=== PATIENT | female | born 1990 | race Caucasian/White ===

== ENCOUNTER 2019-09-03 08:50 | Inpatient (IN) | payer OTHER ==
[2019-09-03 10:48] LABS: BASO % 0.4 % (0-2.0); EOS % 0.6 % (0-4.5); HEMATOCRIT 32.9 % (32.4-45.2); HEMOGLOBIN 10.8 GM/dL (10.7-15.3); LYMPH % 24.2 % (8-40); MCH 25.9 pg (25.7-33.7); MCHC 32.9 g/dl (32.0-36.0); MEAN CELL VOLUME 78.7 fl (80-96); MONO % 5.4 % (3.8-10.2); NEUT % 69.4 % (42.8-82.8); PLATELET COUNT 294 K/MM3 (134-434); RBC 4.18 M/mm3 (3.60-5.2); RDW 15.8 % (11.6-15.6)
[2019-09-03 10:49] VITALS: BMI 30.1
--- NOTE | 2019-09-03 10:59 | HP ---
Past Medical History - Admission Chief Complaint: Labor pain History of Present Illness: 28 yo @ 38.4 weeks gestation, EDC 09/13/19, with previous , admitted for . She denies any rupture of membrane nor vaginal bleeding. Upon admission she was 4cm dilated. History Source: Patient Limitations to Obtaining History: No Limitations - Past Medical History ...: 3 ...Para: 2 ...Term: 2 ...: 0 ...Spon : 0 ...Induced : 0 ...Multiple Gestation: 0 ...EDC by [facility]: 09/13/19 - Past Surgical History Past Surgical History: Yes: Hx Myomectomy: No Hx Transabdominal Cerclage: No - Smoking History Smoking history: Never smoked Have you smoked in the past 12 months: No - Alcohol/Substance Use Hx Alcohol Use: No - Social History Usual Living Arrangement: Yes: With Significant Other History of Recent Travel: No Home Medications - Allergies Allergies/Adverse Reactions: Allergies Allergy/AdvReac Type Severity Reaction Status Date / Time No Known Allergies Allergy Verified 09/03/19 09:23 - Home Medications Home Medications: Ambulatory Orders Vitamins ([facility]) - 1 tab PO DAILY 09/03/19 Family Medical History Family History: Unremarkable Review of Systems - Review of Systems Constitutional: reports: No Symptoms Eyes: reports: No Symptoms HENT: reports: No Symptoms Neck: reports: No Symptoms Cardiovascular: reports: No Symptoms Respiratory: reports: No Symptoms Gastrointestinal: reports: No Symptoms Genitourinary: reports: Pain Breasts: reports: No Symptoms Reported Musculoskeletal: reports: No Symptoms Integumentary: reports: No Symptoms Neurological: reports: No Symptoms Endocrine: reports: No Symptoms Hematology/Lymphatic: reports: No Symptoms Psychiatric: reports: No Symptoms Pain Intensity: 7 Physical Exam - Maternity Vital Signs: Vital Signs Temperature 98.8 F 09/03/19 09:53 Pulse Rate 67 09/03/19 09:53 Respiratory Rate 20 09/03/19 09:53 Blood Pressure 126/63 09/03/19 09:53 O2 Sat by Pulse Oximetry (%) Constitutional: Yes: Well Nourished Eyes: Yes: Conjunctiva Clear HENT: Yes: Atraumatic Neck: Yes: Supple Cardiovascular: Yes: Regular Rate and Rhythm Lungs: Clear to auscultation - Abdominal Exam/OB Number of Fetuses: Single Presentation: Vertex Contractions: Yes - Vaginal Exam/OB Vaginal Bleediing: No Dilatation (cm): 4 Effacement (%): 80 Amniotic Membrane Status: Intact Presentation: Vertex/Position Station: -2 - Physical Exam Musculoskeletal: Yes: WNL Extremities: Yes: WNL ...Motor Strength: WNL Psychiatric: Yes: Alert, Oriented - Labs Lab Results: CBC, BMP 09/03/19 10:10 Problem List - Problems (1) 38 weeks gestation of Code(s): Z3A.38 - 38 WEEKS GESTATION OF Assessment/Plan 38 weeks gestation Previous Admit for Consent signed Anesthesia to see patient Anticipate
[2019-09-03] MEDS ORDERED: DEXTROSE 5%-LACTATED RINGERS 1,000 ML IV SCH ×2 (11:00)
[2019-09-03 11:01] LABS: INR 0.92 (0.83-1.09); PROTHROMBIN TIME (PATIENT) 10.8 SEC (9.7-13.0)
[2019-09-03 11:04] LABS: ACTIVATED PTT 26.7 SECONDS (25.2-36.5)
[2019-09-03 11:04] LABS: BLOOD UREA NITROGEN 6.8 mg/dL (7-18); CALCIUM 8.2 mg/dL (8.5-10.1); CREATININE 0.5 mg/dL (0.55-1.3); POTASSIUM 4.1 mmol/L (3.5-5.1)
[2019-09-03] MEDS ORDERED: FENTANYL/BUPIVACAINE/NS/PF - PCEA - 50 ML DISP.SYRIN EP ONE (12:57)
[2019-09-03] MEDS ORDERED: NALOXONE HCL 0.4 MG/ML VIAL IVPUSH PRN (13:02)
[2019-09-03] MEDS ORDERED: LIDO 2%/EPI 1:200000 PRESRVFRE (20 ML SDVIAL) ONE (13:04)
[2019-09-03] MEDS ORDERED: BUPIVACAINE HCL/PF 2.5 MG/ML - 30 ML VIAL IJ ONE (13:04)
[2019-09-03] MEDS ORDERED: FENTANYL/BUPIVACAINE/NS/PF - PCEA - 50 ML DISP.SYRIN EP SCH (13:15)
[2019-09-03] MEDS ORDERED: OXYTOCIN 20 UNITS in 0.9% NS 20 UNIT/1,000 ML INFUS.BAG IV ONE (13:42)
[2019-09-03] MEDS ORDERED: OXYTOCIN 30 UNITS in 0.9% NS 30 UNIT/500 ML INFUS.BAG IVPB ONE (15:11)
[2019-09-03] MEDS ORDERED: ACETAMINOPHEN 325 MG TABLET (FP) PO PRN (15:54)
[2019-09-03] MEDS ORDERED: BENZOCAINE 20% 57 GM BOTTLE TP PRN (15:54)
[2019-09-03] MEDS ORDERED: BENZOCAINE 28 GM HEMORRHOIDAL OINTMENT TP PRN (15:54)
[2019-09-03] MEDS ORDERED: BISACODYL 10 MG SUPP.RECT RC PRN (15:54)
[2019-09-03] MEDS ORDERED: IBUPROFEN 600 MG TABLET (FP) PO PRN (15:54)
[2019-09-03] MEDS ORDERED: WITCH HAZEL 50% (TUCKS) 40 PAD/JAR PAD TP PRN (15:54)
[2019-09-03] MEDS ORDERED: METHYLERGONOVINE MALEATE 0.2 MG/1 ML AMP IM PRN (15:54)
--- NOTE | 2019-09-03 15:58 | PN ---
Delivery - Delivery Vaginal Delivery: V-Tammy Type of Anesthesia: Spinal Episiotomy/Laceration: None EBL (cc): 250 Delivery, Single - Feeding Plan Initial Plan: Exclusive throughout hospitalization Remarks - Remarks Remarks: Vaginal after of a live infant girl over intact perineum. Nose / Oropharynx suctioned @ perineum. Tight nuchal cord x 1 clamped and cut. Baby handed to nurse. Placenta expelled spontaneously intact. Mother in stable condition.
[2019-09-03] MEDS ORDERED: OXYTOCIN 20 UNITS in 0.9% NS 20 UNIT/1,000 ML INFUS.BAG IV SCH (16:00)
[2019-09-03] MEDS ORDERED: ELECTROLYTE-148 SOLN 1,000 ML IV SCH (16:00)
[2019-09-03] MEDS: FERROUS SO4 325 MG TABLET (FP) PO SCH (21:08)
[2019-09-04] MEDS: FERROUS SO4 325 MG TABLET (FP) PO SCH ×2 (10:18→21:32)
[2019-09-04] MEDS: PRENATAL VITAMINS W/ FOLIC ACID TABLET (FP) PO SCH (10:18)
[2019-09-04 10:26] LABS: BASO % 0.2 % (0-2.0); EOS % 0.5 % (0-4.5); HEMOGLOBIN 10.3 GM/dL (10.7-15.3); MCH 26.2 pg (25.7-33.7); MCHC 33.3 g/dl (32.0-36.0); MEAN CELL VOLUME 78.6 fl (80-96); MEAN PLT VOLUME 8.7 fl (7.5-11.1); NEUT % 84.3 % (42.8-82.8); PLATELET COUNT 285 K/MM3 (134-434); RBC 3.94 M/mm3 (3.60-5.2); RDW 16.1 % (11.6-15.6); WHITE BLOOD COUNT 9.9 K/mm3 (4.0-10.0)
--- NOTE | 2019-09-04 10:36 | PN ---
Post Progress Note - Subjective Subjective: 28 yo Para 3 status post vaginal delivery, seen and evaluated. Doing well Post Day: 1 Type of Delivery: Vital Signs: Vital Signs Temperature 97.8 F 09/04/19 08:52 Pulse Rate 78 09/04/19 08:52 Respiratory Rate 20 09/04/19 02:00 Blood Pressure 114/58 L 09/04/19 08:52 O2 Sat by Pulse Oximetry (%) 100 09/03/19 17:00 Breast Exam: Yes: Soft Uterus: Yes: Fundus Firm Abdomen/GI: Yes: Abdomen soft, Tolerating PO Lochia: Yes: Rubra Lochia, amount: Moderate Extremities: Yes: Calves non-tender Perineum: Yes: Intact Activity: Ambulating - Labs Labs: CBC WBC 9.9 K/mm3 (4.0-10.0) 09/04/19 09:50 RBC 3.94 M/mm3 (3.60-5.2) 09/04/19 09:50 Hgb 10.3 GM/dL (10.7-15.3) L 09/04/19 09:50 Hct 31.0 % (32.4-45.2) L 09/04/19 09:50 MCV 78.6 fl (80-96) L 09/04/19 09:50 MCH 26.2 pg (25.7-33.7) 09/04/19 09:50 MCHC 33.3 g/dl (32.0-36.0) 09/04/19 09:50 RDW 16.1 % (11.6-15.6) H 09/04/19 09:50 Plt Count 285 K/MM3 (134-434) 09/04/19 09:50 MPV 8.7 fl (7.5-11.1) 09/04/19 09:50 Absolute Neuts (auto) 8.3 K/mm3 (1.5-8.0) H 09/04/19 09:50 Neutrophils % 84.3 % (42.8-82.8) H D 09/04/19 09:50 Lymphocytes % 12.0 % (8-40) D 09/04/19 09:50 Monocytes % 3.0 % (3.8-10.2) L 09/04/19 09:50 Eosinophils % 0.5 % (0-4.5) 09/04/19 09:50 Basophils % 0.2 % (0-2.0) 09/04/19 09:50 Nucleated RBC % 0 % (0-0) 09/04/19 09:50 Problem List - Problems (1) 38 weeks gestation of Problems reviewed: Yes Code(s): Z3A.38 - 38 WEEKS GESTATION OF (2) Status post normal vaginal delivery Problems reviewed: Yes Code(s): PDD5861 - Assessment/Plan Status post normal vaginal delivery Stable Continue routine care
[2019-09-04] MEDS ORDERED: SENNOSIDES/DOCUSATE COMBO (SENNA PLUS) TABLET (UD) PO PRN (22:00)
--- NOTE | 2019-09-05 07:03 | PN ---
Post Note - Post Date of Delivery: 09/03/19 Post Day: 1 Vital Signs: Vital Signs - 24 hr 09/04/19 09/04/19 09/04/19 08:52 12:00 15:00 Temperature 97.8 F 98.5 F 98.5 F Pulse Rate 78 83 83 Respiratory 20 20 Rate Blood Pressure 114/58 L 103/65 103/65 09/04/19 21:34 Temperature 98.4 F Pulse Rate 70 Respiratory 18 Rate Blood Pressure 110/66 Labs: Laboratory Results - last 24 hr 09/04/19 09:50 WBC 9.9 RBC 3.94 Hgb 10.3 L Hct 31.0 L MCV 78.6 L MCH 26.2 MCHC 33.3 RDW 16.1 H Plt Count 285 MPV 8.7 Absolute Neuts (auto) 8.3 H Neutrophils % 84.3 H D Lymphocytes % 12.0 D Monocytes % 3.0 L Eosinophils % 0.5 Basophils % 0.2 Nucleated RBC % 0 - Subjective Subjective: No Complaints - Objective Afebrile: Yes Breast: Not engorged Abdomen: Soft, Non-tender Uterus: Fundus firm Vagina: Scant lochia Extremities: Non-tender - Assessment/Plan (1) Status post normal vaginal delivery Assessment: S/P Normal Plan: Routine Care
[2019-09-05] MEDS: PRENATAL VITAMINS W/ FOLIC ACID TABLET (FP) PO SCH (11:01)
[2019-09-05] MEDS: FERROUS SO4 325 MG TABLET (FP) PO SCH (11:01)
[2019-09-05 15:28] VITALS: BP 116/71; PULSE 71; TEMP 98.2
== END 2019-09-05 11:20 | disposition home or self-care (01) | DRG 560 ==
LOC: JDEL 08:50 → JLDR 09:35 → J3W 18:22
PROVIDERS: ADMIT Obstetrics & Gynecology; ATTEND Obstetrics & Gynecology
PROC: 10E0XZZ Delivery of Products of Conception, External Approach (ICD-10-PCS; principal; 2019-09-03)
DX: O69.1XX0 Labor and delivery complicated by cord around neck, with compression, not applicable or unspecified (principal); O34.219 Maternal care for unspecified type scar from previous cesarean delivery; Z3A.38 38 weeks gestation of pregnancy; Z37.0 Single live birth
CPT/HCPCS: 36415; 59025; 59409; 80048; 85025; 85610; 85730; 86593; 86850; 86900; 86901

== ENCOUNTER 2025-02-24 01:57 | Emergency (ER) | payer OTHER ==
[2025-02-24 02:09] VITALS: TEMP 97.8; BMI 23.3
[2025-02-24] MEDS ORDERED: MAG HYDROX/AL HYDROX/SIMETH 30 ML UNIT-DOSE CUP ONE (02:20)
[2025-02-24] MEDS ORDERED: ACETAMINOPHEN INJECTION 100 ML ONE (02:20)
[2025-02-24] MEDS ORDERED: FAMOTIDINE 20 MG/50 ML IVPB 20 MG/50 ML MG IVPB ONE (02:20)
[2025-02-24] MEDS: MAG HYDROX/AL HYDROX/SIMETH 30 ML UNIT-DOSE CUP PO ONE (02:31)
[2025-02-24] MEDS: ACETAMINOPHEN 1000 MG/100 ML BAG IVPB ONE (02:31)
[2025-02-24 02:40] LABS: ABSOLUTE IMMATURE GRANULOCYTES 0.01 x10^3/uL (0.0-0.031); BASOPHILS # 0.02 x10^3/uL (0.01-0.08); EOSINOPHIL % 2.1 % (0.7-5.8); HEMATOCRIT 36.7 % (34.1-44.9); HEMOGLOBIN 12.4 g/dL (11.2-15.7); MCHC 33.8 g/dl (32.2-35.5); MEAN CELL VOLUME 87.2 fl (79.4-94.8); MEAN PLT VOLUME 9.7 fl (9.4-12.3); MONOCYTE # 0.36 x10^3/uL (0.24-0.86); MONOCYTE % 7.7 % (4.7-12.5); PLATELET COUNT 303 x10^3/uL (182-369); RDW 13.8 % (12.1-16.8)
[2025-02-24] MEDS: FAMOTIDINE 20 MG/50 ML IVPB 20 MG/50 ML MG IVPB ONE (02:44)
[2025-02-24 03:16] LABS: POTASSIUM 3.8 mmol/L (3.5-5.1)
[2025-02-24 03:18] LABS: BLOOD UREA NITROGEN 13.1 mg/dL (7-18); CALCIUM 8.7 mg/dL (8.5-10.1)
[2025-02-24 03:19] LABS: ALBUMIN 3.5 g/dl (3.4-5.0)
[2025-02-24 03:21] LABS: CREATININE 0.6 mg/dL (0.55-1.3)
[2025-02-24 03:23] LABS: BILIRUBIN,TOTAL 0.4 mg/dL (0.2-1)
[2025-02-24 04:24] VITALS: BP 103/53; PULSE 60; RESP 16
== END 2025-02-24 04:24 | disposition home or self-care (01) ==
LOC: JER 01:57
PROC: 3E033GC Introduction of Other Therapeutic Substance into Peripheral Vein, Percutaneous Approach (ICD-10-PCS; principal; 2025-02-24)
PROC: 3E033NZ Introduction of Analgesics, Hypnotics, Sedatives into Peripheral Vein, Percutaneous Approach (ICD-10-PCS; 2025-02-24)
DX: K21.9 Gastro-esophageal reflux disease without esophagitis (principal); R11.0 Nausea
CPT/HCPCS: 36415; 74019-TC-FY; 80053; 83690; 84484; 84703; 85025; 93005; 93010; 99285-25; J0131